=== PATIENT | male | born 1960 | race Two or more races ===

== ENCOUNTER 2017-09-30 22:07 | Emergency (ER) | payer OTHER ==
[2017-09-30] MEDS: FAMOTIDINE 20 MG TABLET. PO (22:53)
[2017-09-30] MEDS: ONDANSETRON ODT 4 MG TAB.RAPDIS. PO (22:53)
[2017-09-30 23:08] LABS: INFLUENZA A PATIENT NEGATIVE (NEGATIVE); INFLUENZA B PATIENT NEGATIVE (NEGATIVE); OBC FLU VALID
== END 2017-09-30 23:20 | disposition home or self-care (01) ==
LOC: ER 22:07
DX: R11.10 Vomiting, unspecified (principal)
CPT/HCPCS: 87804; 87804-59; 99284; Q0162